=== PATIENT | female | born 1950 | race African-American/Black ===

== ENCOUNTER 2022-06-12 10:52 | Emergency (ER) | payer MEDICARE, OTHER ==
[~2022-06-12] VITALS: Ht 167.6 cm; Wt 52.3 kg
[~2022-06-12 10:52] MED LIST: ATOR10TA PO; [UNRECOGNIZED DRUG - OTHER]; calcium
[2022-06-12] MEDS ORDERED: HYDROCODONE/ACETAMINOPHEN 5-325 MG TABLET PO ONE (12:45)
[2022-06-12] MEDS ORDERED: HYDR-4723 PO (14:48)
[2022-06-12 15:01] VITALS: BP 129/91
[2022-06-13] MEDS ORDERED: HYDR-4072 PO (11:55)
== END 2022-06-12 15:15 | disposition home or self-care (01) ==
LOC: EMS 10:53
DX: M25.551 Pain in right hip (principal); M25.561 Pain in right knee; M19.90 Unspecified osteoarthritis, unspecified site; E78.00 Pure hypercholesterolemia, unspecified; I10 Essential (primary) hypertension; F17.210 Nicotine dependence, cigarettes, uncomplicated; Z88.0 Allergy status to penicillin
CPT/HCPCS: 73502; 99284

== ENCOUNTER 2022-10-13 11:32 | Emergency (ER) | payer MEDICARE, OTHER ==
[~2022-10-13] VITALS: Ht 167.6 cm; Wt 52.3 kg
[~2022-10-13 11:32] MED LIST changes: +ACET-66 PO; -ATOR10TA PO; -[UNRECOGNIZED DRUG - OTHER]; -calcium
[2022-10-13 14:28] VITALS: BP 132/66; PULSE 84; RESP 16
[2022-10-13] MEDS ORDERED: DIPH50CA37 PO (14:37)
[2022-10-13] MEDS ORDERED: ACET-2080 PO (14:37)
== END 2022-10-13 15:54 | disposition home or self-care (01) ==
LOC: EMS 11:32
DX: T78.40XA Allergy, unspecified, initial encounter (principal); M16.11 Unilateral primary osteoarthritis, right hip; H26.9 Unspecified cataract; E78.00 Pure hypercholesterolemia, unspecified; I10 Essential (primary) hypertension; F17.210 Nicotine dependence, cigarettes, uncomplicated; Z90.710 Acquired absence of both cervix and uterus; Z98.890 Other specified postprocedural states; Z88.0 Allergy status to penicillin; X58.XXXA Exposure to other specified factors, initial encounter
CPT/HCPCS: 99283; Z7502

== ENCOUNTER 2022-11-16 11:17 | Emergency (ER) | payer MEDICARE, OTHER ==
[~2022-11-16] VITALS: Ht 167.6 cm; Wt 59.1 kg
[~2022-11-16 11:17] MED LIST changes: +ACET-2080 PO; +DIPH50CA37 PO
[2022-11-16 11:25] VITALS: TEMP 98.8
[2022-11-16] MEDS ORDERED: MELO-106 PO (11:25)
[2022-11-16 14:40] VITALS: BP 126/63; PULSE 70; RESP 18
== END 2022-11-16 15:05 | disposition home or self-care (01) ==
LOC: EMS 11:22
DX: M16.9 Osteoarthritis of hip, unspecified (principal); M25.552 Pain in left hip; M25.562 Pain in left knee; M54.50 Low back pain, unspecified; E78.00 Pure hypercholesterolemia, unspecified; I10 Essential (primary) hypertension; F17.210 Nicotine dependence, cigarettes, uncomplicated; Z90.710 Acquired absence of both cervix and uterus; Z98.890 Other specified postprocedural states; Z88.0 Allergy status to penicillin
CPT/HCPCS: 72131; 73700; 99284

== ENCOUNTER 2022-12-21 12:41 | Emergency (ER) | payer MEDICARE, OTHER ==
[~2022-12-21] VITALS: Ht 165.1 cm; Wt 54.5 kg
[~2022-12-21 12:41] MED LIST changes: -ACET-2080 PO; -ACET-66 PO; -DIPH50CA37 PO; +MELO-106 PO
[2022-12-21] MEDS ORDERED: QUET25TA36 PO (12:45)
[2022-12-21 12:50] VITALS: BP 130/90; PULSE 82; RESP 18; TEMP 98
[2022-12-21] MEDS ORDERED: LIDOCAINE 5% TRANSDERMAL PATCH TD ONE (14:00)
[2022-12-21] MEDS ORDERED: KETOROLAC TROMETHAMINE 30 MG/ML VIAL IM ONE (14:00)
[2022-12-21] MEDS ORDERED: TRAM-559 PO (14:53)
== END 2022-12-21 15:04 | disposition home or self-care (01) ==
LOC: EMS 13:52
DX: M54.50 Low back pain, unspecified (principal); M19.90 Unspecified osteoarthritis, unspecified site; E78.00 Pure hypercholesterolemia, unspecified; I10 Essential (primary) hypertension; F17.210 Nicotine dependence, cigarettes, uncomplicated; Z90.710 Acquired absence of both cervix and uterus; Z98.890 Other specified postprocedural states; Z88.0 Allergy status to penicillin
CPT/HCPCS: 99283; 96372; J1885

== ENCOUNTER 2023-07-21 12:37 | Emergency (ER) | payer MEDICARE, OTHER ==
[~2023-07-21] VITALS: Ht 167.6 cm; Wt 45.0 kg
[~2023-07-21 12:37] MED LIST changes: +QUET25TA36 PO; +TRAM50TA5 PO
[2023-07-21 12:47] VITALS: TEMP 98
[2023-07-21] MEDS: IBUPROFEN 600 MG TABLET PO ONE (14:23)
[2023-07-21] MEDS: ACETAMINOPHEN/CODEINE 300-30 MG TABLET PO ONE (14:23)
[2023-07-21] MEDS ORDERED: IBUP-1554 PO (14:34)
[2023-07-21] MEDS ORDERED: ACET-2080 PO (14:34)
[2023-07-21 15:11] VITALS: BP 115/72; PULSE 82; RESP 14
== END 2023-07-21 15:24 | disposition home or self-care (01) ==
LOC: EMS 12:37
DX: S46.811A Strain of other muscles, fascia and tendons at shoulder and upper arm level, right arm, initial encounter (principal); S20.211A Contusion of right front wall of thorax, initial encounter; S40.021A Contusion of right upper arm, initial encounter; F12.90 Cannabis use, unspecified, uncomplicated; Z88.0 Allergy status to penicillin; W01.0XXA Fall on same level from slipping, tripping and stumbling without subsequent striking against object, initial encounter; Y93.89 Activity, other specified; Y92.89 Other specified places as the place of occurrence of the external cause; Y99.8 Other external cause status
CPT/HCPCS: 71101; 99284; 73030-TC; 73060-TC; 73080-TC; Z7502; Z7610

== ENCOUNTER 2023-07-31 15:09 | Emergency (ER) | payer MEDICARE, OTHER ==
[~2023-07-31] VITALS: Ht 154.9 cm; Wt 61.4 kg
[~2023-07-31 15:09] MED LIST changes: +ACET-2080 PO; +IBUP-1554 PO
[2023-07-31 16:43] VITALS: TEMP 98.4
[2023-07-31] MEDS ORDERED: IBUP-1554 PO (18:17)
[2023-07-31] MEDS: ACETAMINOPHEN/CODEINE 300-30 MG TABLET PO ONE (18:17)
[2023-07-31 18:57] VITALS: BP 138/85; PULSE 77; RESP 20
== END 2023-07-31 19:00 | disposition home or self-care (01) ==
LOC: EMS 15:09
DX: G89.29 Other chronic pain (principal); M54.50 Low back pain, unspecified; F12.90 Cannabis use, unspecified, uncomplicated; Z88.0 Allergy status to penicillin
CPT/HCPCS: 99283

== ENCOUNTER → 2023-08-09 | Emergency (ER) | payer MEDICARE, OTHER ==
[~2023-08-09] VITALS: Ht 160 cm; Wt 57.0 kg
[~2023-08-09] MED LIST changes: -MELO-106 PO; +METH-659 PO; -QUET25TA36 PO
[2023-08-09 15:23] VITALS: BP 136/75; PULSE 81; RESP 16; TEMP 97.6
[2023-08-09] MEDS: ACETAMINOPHEN/CODEINE 300-30 MG TABLET PO ONE (15:53)
[2023-08-09] MEDS: IBUPROFEN 200 MG TABLET PO ONE (15:53)
== END | disposition still patient (30) ==
LOC: EMS 15:14
DX: S20.211A Contusion of right front wall of thorax, initial encounter (principal); S40.012A Contusion of left shoulder, initial encounter; F12.90 Cannabis use, unspecified, uncomplicated; Z88.0 Allergy status to penicillin; V82.6XXA Occupant of streetcar injured by fall from streetcar, initial encounter; Y93.89 Activity, other specified; Y92.89 Other specified places as the place of occurrence of the external cause; Y99.8 Other external cause status
CPT/HCPCS: 99283

== ENCOUNTER 2023-08-18 12:47 | Emergency (ER) | payer MEDICARE, OTHER ==
[~2023-08-18] VITALS: Ht 167.6 cm; Wt 49.8 kg
[~2023-08-18 12:47] MED LIST changes: -ACET-2080 PO; -IBUP-1554 PO
[2023-08-18 13:08] VITALS: TEMP 98.4
[2023-08-18] MEDS: ACETAMINOPHEN 325 MG TABLET PO ONE (13:26)
[2023-08-18] MEDS: ACETAMINOPHEN/CODEINE 300-30 MG TABLET PO ONE (14:43)
[2023-08-18 15:35] VITALS: BP 122/63; PULSE 70; RESP 16
== END 2023-08-18 15:48 | disposition home or self-care (01) ==
LOC: EMS 12:48
DX: S46.911A Strain of unspecified muscle, fascia and tendon at shoulder and upper arm level, right arm, initial encounter (principal); S20.211A Contusion of right front wall of thorax, initial encounter; F17.210 Nicotine dependence, cigarettes, uncomplicated; F12.90 Cannabis use, unspecified, uncomplicated; Z98.890 Other specified postprocedural states; Z88.0 Allergy status to penicillin; W01.0XXA Fall on same level from slipping, tripping and stumbling without subsequent striking against object, initial encounter; Y93.89 Activity, other specified; Y92.89 Other specified places as the place of occurrence of the external cause; Y99.8 Other external cause status
CPT/HCPCS: 71101; 99284; 73030-TC; 73060-TC; 73080-TC; Z7502; Z7610